=== PATIENT | male | born 1980 | race Caucasian/White ===

== ENCOUNTER 2021-10-29 19:36 | Emergency (ER) | payer SELFPAY ==
[~2021-10-29] VITALS: Ht 167.6 cm; Wt 82.6 kg
[2021-10-29 19:41] VITALS: BP_SYST 142
[2021-10-29] MEDS ORDERED: KETOROLAC TROMETHAMINE 60 MG/2 ML VIAL IM ONE (20:45)
[2021-10-29] MEDS ORDERED: LIDOCAINE 1%, 20 ML MDV 0 ML ONE (20:48)
[2021-10-29] MEDS ORDERED: LIDOCAINE 1% 10 MG/ML, 20 ML MDV INJ ONE (21:00)
[2021-10-29] MEDS ORDERED: IBUP-1971 PO (23:13)
[2021-10-29 23:40] VITALS: BP_SYST 111
== END 2021-10-29 23:40 | disposition home or self-care (01) ==
LOC: SED 19:36
DX: S00.03XA Contusion of scalp, initial encounter (principal); S00.432A Contusion of left ear, initial encounter; M94.0 Chondrocostal junction syndrome [Tietze]; Y04.0XXA Assault by unarmed brawl or fight, initial encounter; Y93.89 Activity, other specified; Y92.89 Other specified places as the place of occurrence of the external cause; Y99.8 Other external cause status
CPT/HCPCS: 70450; 71045; 71100; 73140; 76376; 93005; 96372; 99284; J1885; J2001